=== PATIENT | male | born 1960 | race Caucasian/White ===

== ENCOUNTER 2018-05-21 14:09 | Inpatient (IN) ==
[2018-05-21] MEDS ORDERED: NORMAL SALINE 1,000 ML IV ONE (14:53)
[2018-05-21] MEDS ORDERED: ONDANSETRON HCL/PF 2 MG/ML VIAL IV ONE (14:53)
[2018-05-21] MEDS ORDERED: ACETAMINOPHEN 325 MG TABLET PO ONE ×2 (14:53→16:37)
--- NOTE | 2018-05-21 15:05 | ERNOTE ---
Medical Problem HPI - Narrative Date of Service: 05/21/18 - General Chief Complaint: Nausea/Vomiting Time Seen by Provider: 05/21/18 14:36 Source: patient Exam Limitations: no limitations - Immun/Allergies/Home Medications Immunizations: IMMUNIZATION HX Immunizations Up to Date No History of Influenza Vaccine No Hx Pneumococcal Vaccination No Allergies/Adverse Reactions: Allergies No Known Allergies Allergy (Unverified 05/21/18 14:18) Home Medications: HOME MEDICATIONS Acyclovir [Zovirax] 400 mg PO BID 05/21/18 [Last Taken Unknown] Sulfamethoxazole/Trimethoprim [Bactrim 400-80 mg Tablet] 1 ea PO DAILY 05/21/18 [Last Taken Unknown] Vitamin C 05/21/18 [Last Taken Unknown] - History of Present History Narrative: This patient is a 57-year-old male who is here stating that, "I am sick." He reports that he has had no energy. He has developed vomiting and diarrhea. He is on chemotherapy for mantle cell lymphoma. He had his last round 8 days ago. He has been tired afterwards but started feeling sick yesterday. He said that he developed diarrhea over the weekend and has had 3 or 4 episodes a day. He started vomiting yesterday and has thrown up twice today. He denies blood in the vomit or diarrhea. He has been able to keep down water and applesauce. He denies abdominal pain. He had a fever of 101.3 at home. He did not take anything for it. Review of Systems - Review of Systems Constitutional: Present: fever, malaise, weight loss, decreased activity level EYE: Absent: blurred vision, double vision ENT: Absent: ear pain, nose congestion, nasal drainage, sore throat Respiratory: Present: shortness of breath - He says that he feels short of breath when he is sick.. Absent: cough Cardiology: Absent: chest pain, palpitations, syncope, edema Gastrointestinal/Abdominal: Present: nausea, vomiting, diarrhea, eating less, drinking less. Absent: constipation, abdominal pain Genitourinary: Absent: frequency, pain, dysuria, hematuria Musculoskeletal: Absent: back pain, neck pain Skin: Absent: rash Neurological: Absent: anxiety, depressed, headache, dizziness/light-headedness Endocrine: Absent: unexplained weight gain, unexplained weight loss Hematologic/Lymphatic: Present: other - No active bleeding. Psych: Absent: anxiety, depressed Medical History (Last Reviewed 05/21/18 @ 15:03 by Renan Ann MD) History of chemotherapy Mantle cell lymphoma Surgical History: Surgical History (Last Reviewed 05/21/18 @ 15:03 by Renan Ann MD) Hx of tonsillectomy Social History: Preferred Language Burundian Do you have any protestant or No cultural preference? Smoking Status Former smoker Alcohol Use sober Drug Use none No Social History Section defined Physical Exam - Physical Exam General Appearance: Present: wd/wn, alert, other - He appears to not feel well. Head Exam: Present: normal inspection, no evidence of injury Eye Exam: Normal inspection: bilateral Ears, Nose, Throat: Present: normal ENT inspection, normal pharynx. Absent: abnormal TM (R), abnormal TM (L), pharyngeal erythema, tonsillar exudate Neck: Present: normal inspection, nontender. Absent: lymphadenopathy (R), lymphadenopathy (L) Respiratory: Present: no respiratory distress, normal breath sounds, lungs clear Cardiovascular/Chest: Present: no murmur, tachycardia. Absent: regular rate, rhythm Gastrointestinal/Abdominal: Present: normal bowel sounds, nontender, nondistended, soft, no organomegaly. Absent: guarding, rebound Back Exam: Present: normal inspection, normal range of motion, no CVA tenderness Extremity Exam: Present: normal inspection, non-tender, normal range of motion, no edema Neurological Exam: Present: alert, oriented, normal mood/affect, no motor/sensory deficits Skin Exam: Present: normal color, warm/dry Progress - Date and Time Seen: Date and Time: 05/21/18 16:54 I spoke with the horse groomer electronic device monitor for Dr. Rohit Edwards at the [facility] ([phone]). He suggested that he be continued on cefepime and cultured. He indicated that the patient could be admitted locally. I spoke with Dr. Mercado. He accepted the patient for admission. - Results and Orders Patient's Lab Results:: I have reviewed the patient's lab results. Results and Orders: Laboratory Tests 05/21/18 05/21/18 05/21/18 14:59 14:59 15:05 WBC 0.2 L RBC 3.13 L Hgb 10.1 L Hct 29.6 L MCV 94.6 MCH 32.3 H MCHC 34.1 RDW 17.2 H Plt Count 82 L MPV 11.7 H Immature Gran % (Auto) 5.00 H Immature Gran # (Auto) 0.01 Neutrophils % 30.0 L Neutrophils % (Manual) 20 L Lymphocytes % 15.0 L Lymphocytes % (Manual) 52 H Monocytes % 50.0 H Monocytes % (Manual) 20 H Eosinophils % 0.0 Basophils % 0.0 Nucleated RBC % 0.0 Immature Granulocytes 4 H Neutrophils # 0.1 L Neutrophils # (Manual) 0.0 L Lymphocytes # 0.03 L Lymphocytes # (Manual) 0.0 L Monocytes # 0.1 Monocytes # (Manual) 0.0 Eosinophils # 0.0 Absolute Basophils 0.0 Atypic/Reactive Lymphs 4 H Platelet Estimate Decreased L Macrocytosis 1+ Tear Drop Cells Trace Ovalocytes Trace Sodium Plasma Sodium Potassium Chloride Carbon Dioxide Anion Gap BUN Creatinine Est GFR (Non-Af Amer) Random Glucose Lactic Acid, Venous Calcium Calcium Adj for Albumin Total Bilirubin AST ALT Alkaline Phosphatase C-Reactive Prot, Quant Total Protein Albumin Influenza Type A Ag Negative Influenza Type B Ag Negative Group A Strep Rapid Negative 05/21/18 05/21/18 15:05 15:05 WBC RBC Hgb Hct MCV MCH MCHC RDW Plt Count MPV Immature Gran % (Auto) Immature Gran # (Auto) Neutrophils % Neutrophils % (Manual) Lymphocytes % Lymphocytes % (Manual) Monocytes % Monocytes % (Manual) Eosinophils % Basophils % Nucleated RBC % Immature Granulocytes Neutrophils # Neutrophils # (Manual) Lymphocytes # Lymphocytes # (Manual) Monocytes # Monocytes # (Manual) Eosinophils # Absolute Basophils Atypic/Reactive Lymphs Platelet Estimate Macrocytosis Tear Drop Cells Ovalocytes Sodium 127 L Plasma Sodium 128 L Potassium 3.3 L Chloride 93 L Carbon Dioxide 22.7 L Anion Gap 14.6 H BUN 17 Creatinine 1.12 Est GFR (Non-Af Amer) 71 Random Glucose 145 H Lactic Acid, Venous 1.9 Calcium 8.2 Calcium Adj for Albumin 8.6 Total Bilirubin 0.6 AST 14 ALT 43 Alkaline Phosphatase 95 C-Reactive Prot, Quant 7.0 H Total Protein 6.5 Albumin 3.1 L Influenza Type A Ag Influenza Type B Ag Group A Strep Rapid Laboratory Tests 05/21/18 16:13 Urine Color [place] Urine Appearance Slightly cloudy Urine pH 6.0 Ur Specific [place] >=1.030 Urine Protein 100 H Urine Glucose (UA) Negative Urine Ketones Negative Urine Blood Negative Urine Nitrate Negative Urine Bilirubin Negative Prot Sulfosalicylic Acd Negative Urine Urobilinogen Normal Ur Leukocyte Esterase Negative Urine RBC None seen Urine WBC None seen Ur Epithelial Cells 5-10 H Urine Bacteria 1+ H Fine Granular Casts 0-5 H Urine Mucus Trace Urine Culture Comments No culture indicated - Vital Signs Patient's Vital Signs:: I have reviewed the patient's vital signs. Vital Signs: Vital Signs 05/21/18 14:18 Temperature 38.5 C H Pulse Rate 115 H Respiratory Rate 18 Blood Pressure 111/77 O2 Sat by Pulse Oximetry 98 - Progress/Reassessment Chief Complaint: Nausea/Vomiting Departure Clinical Impression: Neutropenic fever, Mantle cell lymphoma - Departure Disposition: Still a patient Condition: Fair
[2018-05-21 15:17] LABS: Hematocrit 29.6 % (42.0-52.0); Hemoglobin 10.1 gm/dL (13.5-18.0); Mean Cell Volume 94.6 fl (78-100); Mean Corpuscular Hemoglobin 32.3 pg (27-31); Mean Corpuscular Hgb Conc 34.1 g/dl (32-36); Mean Platelet Volume 11.7 fl (8-11.3); Neutrophil # 0.1 K/mm3 (1.3-6.0); Platelet Count 82 K/mm3 (150-450); Red Blood Count 3.13 M/mm3 (4.7-6.0); Red Cell Distribution Width 17.2 % (11.5-14.0); White Blood Count 0.2 K/mm3 (4.0-10.5)
[2018-05-21] MEDS ORDERED: CEFEPIME HCL 1 GM/100 ML BAG IV ONE (15:31)
[2018-05-21 15:36] LABS: Albumin * 3.1 gm/dl (3.4-5.0); Anion Gap 14.6 mmol/L (6.8-13.8); BUN/Creatinine Ratio 15.2 (9.0-21.6); Bilirubin, Total 0.6 mg/dL (0.0-1.1); Ca. Corrected For Albumin 8.6 mg/dL (8.4-10.2); Calcium * 8.2 mg/dL (7.9-10.9); Carbon Dioxide 22.7 mmol/L (24-32.6); Potassium 3.3 mmol/L (3.4-4.6); Total Protein 6.5 gm/dL (6.2-8.2)
[2018-05-21 15:43] LABS: Atypical (Reactive) Lymph 4 % (0-2); Immature Granulocyte 4 (0-1); Lymphocyte 52 % (20-51); Monocyte 20 % (0-9); Neutrophil 20 % (42-75); Total Cells Counted 25
[2018-05-21 15:44] LABS: Platelet Estimate Decreased (NORMAL)
[2018-05-21 15:45] LABS: Macrocytosis 1+; Ovalocytes Trace; Tear Drop Cells Trace
[2018-05-21] MEDS ORDERED: CEFEPIME HCL 2 GM in NORMAL SALINE 100 ML IV ONE (16:00)
[2018-05-21] MEDS ORDERED: CEFEPIME HCL 2 GM in DEXTROSE 5 % IN WATER 100 ML IV ONE ×2 (16:00)
[2018-05-21 16:18] LABS: Urine Bilirubin Negative (NEGATIVE); Urine Blood Negative /ul (NEGATIVE); Urine Ketone Negative (NEGATIVE); Urine Nitrite Negative (NEGATIVE); Urine Protein 100 mg/dL (NEGATIVE); Urine Specific Gravity >=1.030 SP.GR. (1.005-1.030); Urine Urobilinogen Normal (NORMAL)
[2018-05-21 16:27] LABS: Urine Appearance Slightly Cloudy (CLEAR); Urine Bacteria 1+; Urine Color Amber; Urine Fine Granular Cast 0-5 /LPF; Urine Mucus TRACE; Urine RBC None Seen /hpf (0-5); Urine WBC None Seen /hpf (0-5)
--- NOTE | 2018-05-21 18:17 | HP ---
Chief Complaint - Chief Complaint Date of Service: 05/21/18 Time of Service: 17:54 Chief Complaint: fever/weakness History of Present Illness: ashleigh Velez, is a 57-year-old white male, with previous medical history of Mantle cell lymphoma, who was admitted on 05/21/2018 for weakness and fever. The patient was diagnosed with mantle cell lymphoma about 5-6 months ago and was started on chemotherapy. This is his fifth cycle of chemotherapy and he just finished this 8 days ago. He never had any complications with prior CTX. He says that he takes R- CHOP. 2-3 days prior to admission the patient started getting more weaker than usual. Yesterday the patient started having fever, nausea vomiting and diarrhea. He denied any hematemesis or hematochezia or melena. He denied any coughing, burning sensation on urination, any painful so res or blisters. He does admit to his sinuses being blocked all the time and has always a runny nose with clear discharge. He is on prophylactic antibiotic consisting of Bactrim and acyclovir. His weakness got more worst than and he went to our emergency room where he was found to have a fever of 38.5 and a white blood cell count of 0.2, nuetrophils 30 %, immature granulocyte 5 %. His Na is 127 and his K 3.3. His CXR showed no acute cardiopulmonary findings and his urunalysis did not show UTI. The ED docotr called [facility] and they recommended starting IV cefepime and do cultures. The patient was admitted for further evaluation and treatment. 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 Smoking Status Never smoker Have you smoked in the past 12 No months Alcohol Use sober Drug Use none No Social History Section defined Review Of Systems (GEN) - Review of Systems Generalized/Overall Review: Present: Weakness, Fever EENTM: Present: Nose Congestion. Absent: Blurred Vision, Ear Discharge, Throat Swelling Respiratory: Absent: Cough, Shortness of Breath Cardiac: Absent: Chest Pain, Edema, Palpitations Abdominal: Present: Nausea, Vomiting, Diarrhea. Absent: Hematemesis, Melena Genitourinary: Absent: Urgency, Frequency Musculoskeletal: Absent: Joint Pain, Back Pain Neurological: Absent: Headache Skin: Absent: Lesions, Rash Endocrine: Absent: [place]ushing Immunizations: IMMUNIZATION HX Immunizations Up to Date No History of Influenza Vaccine No Hx Pneumococcal Vaccination No Allergies/Adverse Reactions: Allergies Allergy/AdvReac Type Severity Reaction Status Date / Time No Known Allergies Allergy Verified 05/21/18 17:39 Home Medications: HOME MEDICATIONS Acyclovir [Zovirax] 400 mg PO BID 05/21/18 [Last Taken Unknown] Sulfamethoxazole/Trimethoprim [Bactrim 400-80 mg Tablet] 1 ea PO DAILY 05/21/18 [Last Taken Unknown] Vitamin C 05/21/18 [Last Taken Unknown] Exam - Exam Vital Signs: Vital Signs - Last Taken Temp 37.4 C 05/21/18 17:29 Pulse 95 05/21/18 17:29 Resp 18 05/21/18 17:29 BP 138/75 05/21/18 17:29 Pulse Ox 100 05/21/18 17:29 Constitutional: Present: Alert, Oriented x3, Cooperative, Obese ENT Exam: Present: hearing grossly normal, nasal congestion Eye Exam: bilateral eye: normal inspection, PERRL, EOMI Neck: Present: supple Respiratory: Present: decreased breath sounds, No rales, No wheezing Cardiovascular/Chest: Present: regular rate, rhythm, no JVD, no murmur Abdomen: Present: Normal bowel sounds, soft, nontender, nondistended Extremity: Present: no pedal edema, no calf tenderness Neurologic: Present: retort or condenser press operator II-XII nml as tested, no motor/sensory deficits - grossly, oriented x 3 Diagnostic Studies: Abnormal Lab Results 05/21/18 05/21/18 05/21/18 Range/Units 15:05 15:05 15:05 WBC 0.2 L (4.0-10.5) K/mm3 RBC 3.13 L (4.7-6.0) M/mm3 Hgb 10.1 L (13.5-18.0) gm/dL Hct 29.6 L (42.0-52.0) % MCH 32.3 H (27-31) pg RDW 17.2 H (11.5-14.0) % Plt Count 82 L (150-450) K/mm3 MPV 11.7 H (8-11.3) fl Immature Gran % (Auto) 5.00 H (0.001-0.429) % Neutrophils % 30.0 L (42-75.0) % Neutrophils % (Manual) 20 L (42-75) % Lymphocytes % 15.0 L (20-51) % Lymphocytes % (Manual) 52 H (20-51) % Monocytes % 50.0 H (0.0-9) % Monocytes % (Manual) 20 H (0-9) % Immature Granulocytes 4 H (0-1) Neutrophils # 0.1 L (1.3-6.0) K/mm3 Neutrophils # (Manual) 0.0 L (1.3-6.0) K/mm3 Lymphocytes # 0.03 L (1.5-3.5) k/mm3 Lymphocytes # (Manual) 0.0 L (1.5-3.5) k/mm3 Atypic/Reactive Lymphs 4 H (0-2) % Platelet Estimate Decreased L (NORMAL) Sodium 127 L (132-142) mmol/L Plasma Sodium 128 L (130-142) mmol/L Potassium 3.3 L (3.4-4.6) mmol/L Chloride 93 L (97-106) mmol/L Carbon Dioxide 22.7 L (24-32.6) mmol/L Anion Gap 14.6 H (6.8-13.8) mmol/L Random Glucose 145 H (70-110) mg/dL C-Reactive Prot, Quant 7.0 H (0.0-0.9) mg/dL Albumin 3.1 L (3.4-5.0) gm/dl Procalcitonin 0.89 H (0.05-0.50) ng/mL Urine Protein (NEGATIVE) mg/dL Ur Epithelial Cells (0-5) /hpf Urine Bacteria (NONE) Fine Granular Casts (NONE) /LPF 05/21/18 Range/Units 16:13 WBC (4.0-10.5) K/mm3 RBC (4.7-6.0) M/mm3 Hgb (13.5-18.0) gm/dL Hct (42.0-52.0) % MCH (27-31) pg RDW (11.5-14.0) % Plt Count (150-450) K/mm3 MPV (8-11.3) fl Immature Gran % (Auto) (0.001-0.429) % Neutrophils % (42-75.0) % Neutrophils % (Manual) (42-75) % Lymphocytes % (20-51) % Lymphocytes % (Manual) (20-51) % Monocytes % (0.0-9) % Monocytes % (Manual) (0-9) % Immature Granulocytes (0-1) Neutrophils # (1.3-6.0) K/mm3 Neutrophils # (Manual) (1.3-6.0) K/mm3 Lymphocytes # (1.5-3.5) k/mm3 Lymphocytes # (Manual) (1.5-3.5) k/mm3 Atypic/Reactive Lymphs (0-2) % Platelet Estimate (NORMAL) Sodium (132-142) mmol/L Plasma Sodium (130-142) mmol/L Potassium (3.4-4.6) mmol/L Chloride (97-106) mmol/L Carbon Dioxide (24-32.6) mmol/L Anion Gap (6.8-13.8) mmol/L Random Glucose (70-110) mg/dL C-Reactive Prot, Quant (0.0-0.9) mg/dL Albumin (3.4-5.0) gm/dl Procalcitonin (0.05-0.50) ng/mL Urine Protein 100 H (NEGATIVE) mg/dL Ur Epithelial Cells 5-10 H (0-5) /hpf Urine Bacteria 1+ H (NONE) Fine Granular Casts 0-5 H (NONE) /LPF Laboratory Results WBC 0.2 K/mm3 (4.0-10.5) L 05/21/18 15:05 RBC 3.13 M/mm3 (4.7-6.0) L 05/21/18 15:05 Hgb 10.1 gm/dL (13.5-18.0) L 05/21/18 15:05 Hct 29.6 % (42.0-52.0) L 05/21/18 15:05 MCV 94.6 fl (78-100) 05/21/18 15:05 MCH 32.3 pg (27-31) H 05/21/18 15:05 MCHC 34.1 g/dl (32-36) 05/21/18 15:05 RDW 17.2 % (11.5-14.0) H 05/21/18 15:05 Plt Count 82 K/mm3 (150-450) L 05/21/18 15:05 MPV 11.7 fl (8-11.3) H 05/21/18 15:05 Immature Gran % (Auto) 5.00 % (0.001-0.429) H 05/21/18 15:05 Immature Gran # (Auto) 0.01 K/mm3 (0.000-0.0310) 05/21/18 15:05 Neutrophils % 30.0 % (42-75.0) L 05/21/18 15:05 Neutrophils % (Manual) 20 % (42-75) L 05/21/18 15:05 Lymphocytes % 15.0 % (20-51) L 05/21/18 15:05 Lymphocytes % (Manual) 52 % (20-51) H 05/21/18 15:05 Monocytes % 50.0 % (0.0-9) H 05/21/18 15:05 Monocytes % (Manual) 20 % (0-9) H 05/21/18 15:05 Eosinophils % 0.0 % (0.0-3.0) 05/21/18 15:05 Basophils % 0.0 % (0.0-1.0) 05/21/18 15:05 Nucleated RBC % 0.0 k/mm3 (0-1) 05/21/18 15:05 Immature Granulocytes 4 (0-1) H 05/21/18 15:05 Neutrophils # 0.1 K/mm3 (1.3-6.0) L 05/21/18 15:05 Neutrophils # (Manual) 0.0 K/mm3 (1.3-6.0) L 05/21/18 15:05 Lymphocytes # 0.03 k/mm3 (1.5-3.5) L 05/21/18 15:05 Lymphocytes # (Manual) 0.0 k/mm3 (1.5-3.5) L 05/21/18 15:05 Monocytes # 0.1 k/mm3 (0.0-1.0) 05/21/18 15:05 Monocytes # (Manual) 0.0 k/mm3 (0.0-1.0) 05/21/18 15:05 Eosinophils # 0.0 k/mm3 (0.0-0.7) 05/21/18 15:05 Absolute Basophils 0.0 k/mm3 (0.0-0.1) 05/21/18 15:05 Atypic/Reactive Lymphs 4 % (0-2) H 05/21/18 15:05 Platelet Estimate Decreased (NORMAL) L 05/21/18 15:05 Macrocytosis 1+ 05/21/18 15:05 Tear Drop Cells Trace 05/21/18 15:05 Ovalocytes Trace 05/21/18 15:05 Sodium 127 mmol/L (132-142) L 05/21/18 15:05 Plasma Sodium 128 mmol/L (130-142) L 05/21/18 15:05 Potassium 3.3 mmol/L (3.4-4.6) L 05/21/18 15:05 Chloride 93 mmol/L (97-106) L 05/21/18 15:05 Carbon Dioxide 22.7 mmol/L (24-32.6) L 05/21/18 15:05 Anion Gap 14.6 mmol/L (6.8-13.8) H 05/21/18 15:05 BUN 17 mg/dL (6-23) 05/21/18 15:05 Creatinine 1.12 mg/dL (0.4-1.4) 05/21/18 15:05 Est GFR (Non-Af Amer) 71 mL/min (60-130) 05/21/18 15:05 BUN/Creatinine Ratio 15.2 (9.0-21.6) 05/21/18 15:05 Random Glucose 145 mg/dL (70-110) H 05/21/18 15:05 Lactic Acid, Venous 1.9 mmol/L (0.4-2.0) 05/21/18 15:05 Calcium 8.2 mg/dL (7.9-10.9) 05/21/18 15:05 Calcium Adj for Albumin 8.6 mg/dL (8.4-10.2) 05/21/18 15:05 Total Bilirubin 0.6 mg/dL (0.0-1.1) 05/21/18 15:05 AST 14 U/L (0-48) 05/21/18 15:05 ALT 43 U/L (19-67) 05/21/18 15:05 Alkaline Phosphatase 95 U/L (50-170) 05/21/18 15:05 C-Reactive Prot, Quant 7.0 mg/dL (0.0-0.9) H 05/21/18 15:05 Total Protein 6.5 gm/dL (6.2-8.2) 05/21/18 15:05 Albumin 3.1 gm/dl (3.4-5.0) L 05/21/18 15:05 Procalcitonin 0.89 ng/mL (0.05-0.50) H 05/21/18 15:05 Urine Color [place] 05/21/18 16:13 Urine Appearance Slightly cloudy (CLEAR) 05/21/18 16:13 Urine pH 6.0 pH (5.0-7.0) 05/21/18 16:13 Ur Specific [place] >=1.030 SP.GR. (1.005-1.030) 05/21/18 16:13 Urine Protein 100 mg/dL (NEGATIVE) H 05/21/18 16:13 Urine Glucose (UA) Negative mg/dL (NEGATIVE) 05/21/18 16:13 Urine Ketones Negative mg/dL (NEGATIVE) 05/21/18 16:13 Urine Blood Negative /ul (NEGATIVE) 05/21/18 16:13 Urine Nitrate Negative (NEGATIVE) 05/21/18 16:13 Urine Bilirubin Negative mg/dl (NEGATIVE) 05/21/18 16:13 Prot Sulfosalicylic Acd Negative mg/dL (0) 05/21/18 16:13 Urine Urobilinogen Normal EU/dl (NORMAL) 05/21/18 16:13 Ur Leukocyte Esterase Negative /ul (NEGATIVE) 05/21/18 16:13 Urine RBC None seen /hpf (0-5) 05/21/18 16:13 Urine WBC None seen /hpf (0-5) 05/21/18 16:13 Ur Epithelial Cells 5-10 /hpf (0-5) H 05/21/18 16:13 Urine Bacteria 1+ (NONE) H 05/21/18 16:13 Fine Granular Casts 0-5 /LPF (NONE) H 05/21/18 16:13 Urine Mucus Trace (NONE) 05/21/18 16:13 Urine Culture Comments No culture indicated 05/21/18 16:13 Influenza Type A Ag Negative (NEGATIVE) 05/21/18 14:59 Influenza Type B Ag Negative (NEGATIVE) 05/21/18 14:59 Group A Strep Rapid Negative (NEGATIVE) 05/21/18 14:59 Assessment/Plan - Assessment/Plan (1) Neutropenic fever Assessment: We will continue with IV cefepime. We will do blood cultures, urine cultures, stool cultures as well as stool for C. difficile. We will monitor her his white blood cell count and his absolute neutrophil count. Problem: Acute (2) Mantle cell lymphoma Problem: Chronic (3) Electrolyte imbalance Assessment: Hyponatremia, asymptomatic with mild hypokalemia due to vomiting and diarrhea. We will start him on 0.9 NSS with potassium chloride. Problem: Acute (4) Hyponatremia Assessment: due to N/V/D Problem: Acute (5) Hypokalemia Assessment: due to N/V/D Problem: Acute
[2018-05-21] MEDS ORDERED: ACETAMINOPHEN 325 MG TABLET PO PRN (18:18)
[2018-05-21] MEDS ORDERED: ONDANSETRON HCL/PF 2 MG/ML VIAL IV PRN (18:18)
[2018-05-21] MEDS: POTASSIUM CHLORIDE 10 MEQ in NORMAL SALINE 1,000 ML IV SCH (18:36)
[2018-05-21] MEDS: ACYCLOVIR 200 MG CAPSULE PO SCH (21:13)
[2018-05-21] MEDS: ENOXAPARIN SODIUM 40 MG/0.4 ML SYRG SC SCH (21:15)
[2018-05-22] MEDS: POTASSIUM CHLORIDE 10 MEQ in NORMAL SALINE 1,000 ML IV SCH ×2 (03:28→15:20)
[2018-05-22] MEDS: CEFEPIME HCL 1 GM in DEXTROSE 5 % IN WATER 100 ML IV SCH ×4 (03:31→15:17)
[2018-05-22] MEDS: ACYCLOVIR 200 MG CAPSULE PO SCH ×2 (08:28→20:10)
--- NOTE | 2018-05-22 09:29 | PN ---
Subjective - Date and Time Seen Date: 05/22/18 Time: 09:18 Subjective Narrative: He says he feels a little bit better. Afebrile since 2330 last night. No more N/V but still with diarrhea. Ate a little bit this time. Objective - Review of Systems Generalized/Overall Review: Reports: Weakness, Fever. Denies: Chills EENTM: Denies: Blurred Vision Respiratory: Denies: Cough, Shortness of Breath, Orthopnea Cardiac: Denies: Chest Pain, Edema, Palpitations Abdominal: Reports: Diarrhea. Denies: Nausea, Vomiting Genitourinary Symptoms: Denies: Urgency, Frequency Musculoskeletal Complaints: Denies: Joint Pain, Back Pain Neurological: Denies: Headache, Depressed Skin: Denies: Lesions Endocrine: Denies: Intolerance to Cold, Intolerance to Heat - Vitals Vitals: Last Vital Signs Temp 36.6 C 05/22/18 07:07 Pulse 85 05/22/18 07:07 Resp 20 05/22/18 07:07 BP 118/60 05/22/18 07:07 Pulse Ox 99 05/22/18 07:07 - Abnormal Lab Findings Abnormal Lab Findings: Abnormal Lab Results 05/21/18 05/21/18 05/21/18 Range/Units 15:05 15:05 15:05 WBC 0.2 L (4.0-10.5) K/mm3 RBC 3.13 L (4.7-6.0) M/mm3 Hgb 10.1 L (13.5-18.0) gm/dL Hct 29.6 L (42.0-52.0) % MCH 32.3 H (27-31) pg RDW 17.2 H (11.5-14.0) % Plt Count 82 L (150-450) K/mm3 MPV 11.7 H (8-11.3) fl Immature Gran % (Auto) 5.00 H (0.001-0.429) % Neutrophils % 30.0 L (42-75.0) % Neutrophils % (Manual) 20 L (42-75) % Lymphocytes % 15.0 L (20-51) % Lymphocytes % (Manual) 52 H (20-51) % Monocytes % 50.0 H (0.0-9) % Monocytes % (Manual) 20 H (0-9) % Immature Granulocytes 4 H (0-1) Neutrophils # 0.1 L (1.3-6.0) K/mm3 Neutrophils # (Manual) 0.0 L (1.3-6.0) K/mm3 Lymphocytes # 0.03 L (1.5-3.5) k/mm3 Lymphocytes # (Manual) 0.0 L (1.5-3.5) k/mm3 Atypic/Reactive Lymphs 4 H (0-2) % Platelet Estimate Decreased L (NORMAL) Sodium 127 L (132-142) mmol/L Plasma Sodium 128 L (130-142) mmol/L Potassium 3.3 L (3.4-4.6) mmol/L Chloride 93 L (97-106) mmol/L Carbon Dioxide 22.7 L (24-32.6) mmol/L Anion Gap 14.6 H (6.8-13.8) mmol/L Random Glucose 145 H (70-110) mg/dL C-Reactive Prot, Quant 7.0 H (0.0-0.9) mg/dL Albumin 3.1 L (3.4-5.0) gm/dl Procalcitonin 0.89 H (0.05-0.50) ng/mL Urine Protein (NEGATIVE) mg/dL Ur Epithelial Cells (0-5) /hpf Urine Bacteria (NONE) Fine Granular Casts (NONE) /LPF 05/21/18 Range/Units 16:13 WBC (4.0-10.5) K/mm3 RBC (4.7-6.0) M/mm3 Hgb (13.5-18.0) gm/dL Hct (42.0-52.0) % MCH (27-31) pg RDW (11.5-14.0) % Plt Count (150-450) K/mm3 MPV (8-11.3) fl Immature Gran % (Auto) (0.001-0.429) % Neutrophils % (42-75.0) % Neutrophils % (Manual) (42-75) % Lymphocytes % (20-51) % Lymphocytes % (Manual) (20-51) % Monocytes % (0.0-9) % Monocytes % (Manual) (0-9) % Immature Granulocytes (0-1) Neutrophils # (1.3-6.0) K/mm3 Neutrophils # (Manual) (1.3-6.0) K/mm3 Lymphocytes # (1.5-3.5) k/mm3 Lymphocytes # (Manual) (1.5-3.5) k/mm3 Atypic/Reactive Lymphs (0-2) % Platelet Estimate (NORMAL) Sodium (132-142) mmol/L Plasma Sodium (130-142) mmol/L Potassium (3.4-4.6) mmol/L Chloride (97-106) mmol/L Carbon Dioxide (24-32.6) mmol/L Anion Gap (6.8-13.8) mmol/L Random Glucose (70-110) mg/dL C-Reactive Prot, Quant (0.0-0.9) mg/dL Albumin (3.4-5.0) gm/dl Procalcitonin (0.05-0.50) ng/mL Urine Protein 100 H (NEGATIVE) mg/dL Ur Epithelial Cells 5-10 H (0-5) /hpf Urine Bacteria 1+ H (NONE) Fine Granular Casts 0-5 H (NONE) /LPF - Exam Constitutional: Present: Alert, Oriented x3, Cooperative ENT Exam: Present: hearing grossly normal Neck: Present: supple Respiratory: Present: decreased breath sounds, No rales, No wheezing Cardiovascular/Chest: Present: regular rate, rhythm, no JVD, no murmur Abdomen: Present: Normal bowel sounds, soft, nontender, nondistended Extremity: Present: no calf tenderness, pedal edema Neurologic: 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 Clinically feels better. he wants to go home. will monitor ANC and fever before starting oral antibiotics and planning for discharge. C. diff was negative. will order CBC and BMP tomorrow. (2) Mantle cell lymphoma Problem: Chronic Qualifiers: Lymphoma site: unspecified region Qualified Code(s): C83.10 - Mantle cell lymphoma, unspecified site (3) Electrolyte imbalance Problem: Acute Narrative: will check electrolyte in the morning. he has been poked several times today for an IV access. anesthesia consulted for IV line placement. (4) Hyponatremia Problem: Acute (5) Hypokalemia Problem: Acute
[2018-05-22] MEDS: ENOXAPARIN SODIUM 40 MG/0.4 ML SYRG SC SCH (20:10)
[2018-05-23] MEDS: POTASSIUM CHLORIDE 10 MEQ in NORMAL SALINE 1,000 ML IV SCH ×3 (01:27→16:10)
[2018-05-23] MEDS: CEFEPIME HCL 1 GM in DEXTROSE 5 % IN WATER 100 ML IV SCH ×4 (03:52→16:07)
[2018-05-23 06:06] LABS: Anion Gap 9.3 mmol/L (6.8-13.8); BUN/Creatinine Ratio 13.6 (9.0-21.6); Calcium * 8.1 mg/dL (7.9-10.9); Carbon Dioxide 25.9 mmol/L (24-32.6); Estimated Creat Clear 107.9; Mean Cell Volume 93.9 fl (78-100); Mean Corpuscular Hemoglobin 32.4 pg (27-31); Mean Corpuscular Hgb Conc 34.5 g/dl (32-36); Platelet Count 53 K/mm3 (150-450); Potassium 3.2 mmol/L (3.4-4.6); Red Blood Count 2.47 M/mm3 (4.7-6.0); Red Cell Distribution Width 16.6 % (11.5-14.0); White Blood Count 0.9 K/mm3 (4.0-10.5)
[2018-05-23 06:11] LABS: Hematocrit 24.2 % (42.0-52.0)
[2018-05-23 06:12] LABS: Total Cells Counted 100
[2018-05-23 06:37] LABS: Atypical (Reactive) Lymph 6 % (0-2); Band 12 % (0-2.0); Basophil 1 % (0-1); Lymphocyte 30 % (20-51); Monocyte 6 % (0-9); Neutrophil 45 % (42-75); Neutrophil # 0.4 K/mm3 (1.3-6.0); Platelet Estimate Normal (NORMAL)
[2018-05-23] MEDS: ACYCLOVIR 200 MG CAPSULE PO SCH ×2 (08:33→21:29)
[2018-05-23] MEDS ORDERED: POTASSIUM CHLORIDE 10 MEQ TABLET.SA PO ONE (09:24)
--- NOTE | 2018-05-23 09:48 | PN ---
Subjective - Date and Time Seen Date: 05/23/18 Time: 09:44 Subjective Narrative: Patient feels beter and wants to go home. He has been afebrile for the last 36 hours. ANC is up to 1000 but his platelet is down to 53 from 83. Hb is down to 8. no gross evidence of bleed. Objective - Review of Systems Generalized/Overall Review: Reports: Weakness. Denies: Chills, Fever EENTM: Denies: Blurred Vision Respiratory: Denies: Cough, Shortness of Breath Cardiac: Denies: Chest Pain, Edema, Palpitations Abdominal: Denies: Nausea, Vomiting, Abdominal Pain, Diarrhea Genitourinary Symptoms: Denies: Urgency, Frequency Musculoskeletal Complaints: Denies: Joint Pain, Back Pain Neurological: Denies: Headache Skin: Denies: Lesions, Rash - Vitals Vitals: Last Vital Signs Temp 36.8 C 05/23/18 06:50 Pulse 67 05/23/18 06:50 Resp 16 05/23/18 06:50 BP 113/55 05/23/18 06:50 Pulse Ox 99 05/23/18 06:50 - Abnormal Lab Findings Abnormal Lab Findings: Abnormal Lab Results 05/23/18 05/23/18 Range/Units 05:55 05:55 WBC 0.9 L D (4.0-10.5) K/mm3 RBC 2.47 L (4.7-6.0) M/mm3 Hgb 8.0 L (13.5-18.0) gm/dL Hct 24.2 L (42.0-52.0) % MCH 32.4 H (27-31) pg RDW 16.6 H (11.5-14.0) % Plt Count 53 L (150-450) K/mm3 MPV 12.0 H (8-11.3) fl Band Neuts % (Manual) 12 H (0-2.0) % Neutrophils # (Manual) 0.4 L (1.3-6.0) K/mm3 Lymphocytes # (Manual) 0.3 L (1.5-3.5) k/mm3 Atypic/Reactive Lymphs 6 H (0-2) % Potassium 3.2 L (3.4-4.6) mmol/L Assessment/Plan - Problems/Diagnosis (1) Pancytopenia Problem: Acute Narrative: Thrombocytopenia/Anemia- still could be due to CTX or his Lymphoma. no gross bleed. will do UA and stool for occult blood. will continue with Lovenox as his risk for clot is still higher than his risk for bleeding unless he shows microsopic hematuria or positive occult blood. . will monitor his platelets and Hb. I don't think it is HIT at this time. (2) Neutropenic fever Problem: Acute Narrative: patient is wanting to go home now. patient was told that we ususal;ly transition them to oral antibiotics after 48 hours of no fever or if their WBC goes down. In his case as he was neutropenic , recommendation is to transition them to oral antibiotics to oral antibitoics even longer afte fever has subside or at least his ANC is above 500 which it is now. would like to follow his platelet for now. (3) Mantle cell lymphoma Problem: Chronic Qualifiers: Lymphoma site: unspecified region Qualified Code(s): C83.10 - Mantle cell lymphoma, unspecified site (4) Electrolyte imbalance Problem: Acute Narrative: will give Siobhan Con. (5) Hyponatremia Problem: Acute (6) Hypokalemia Problem: Acute
[2018-05-23 16:21] LABS: Urine Bilirubin Negative (NEGATIVE); Urine Blood Negative /ul (NEGATIVE); Urine Ketone 5 mg/dL (NEGATIVE); Urine Nitrite Negative (NEGATIVE); Urine Protein Negative (NEGATIVE); Urine Specific Gravity 1.025 SP.GR. (1.005-1.030); Urine Urobilinogen Normal (NORMAL)
[2018-05-23 16:41] LABS: Urine Appearance Clear (CLEAR); Urine Bacteria TRACE; Urine Color Dark Yellow; Urine Mucus Few - 1+; Urine RBC None Seen /hpf (0-5); Urine WBC None Seen /hpf (0-5)
[2018-05-23] MEDS: ENOXAPARIN SODIUM 40 MG/0.4 ML SYRG SC SCH (21:31)
[2018-05-24] MEDS: POTASSIUM CHLORIDE 10 MEQ in NORMAL SALINE 1,000 ML IV SCH (03:22)
[2018-05-24] MEDS: CEFEPIME HCL 1 GM in DEXTROSE 5 % IN WATER 100 ML IV SCH ×2 (03:23)
[2018-05-24 05:39] LABS: Mean Cell Volume 95.5 fl (78-100); Mean Corpuscular Hemoglobin 32.5 pg (27-31); Mean Corpuscular Hgb Conc 34.1 g/dl (32-36); Mean Platelet Volume 12.3 fl (8-11.3); Platelet Count 55 K/mm3 (150-450); Red Blood Count 2.43 M/mm3 (4.7-6.0); Red Cell Distribution Width 17.1 % (11.5-14.0); White Blood Count 1.7 K/mm3 (4.0-10.5)
[2018-05-24 05:40] LABS: BUN/Creatinine Ratio 12.8 (9.0-21.6)
[2018-05-24 05:41] LABS: Anion Gap 10.9 mmol/L (6.8-13.8); Calcium * 8.2 mg/dL (7.9-10.9); Carbon Dioxide 26.5 mmol/L (24-32.6); Estimated Creat Clear 112.1; Potassium 3.4 mmol/L (3.4-4.6)
[2018-05-24 05:44] LABS: Hematocrit 24.2 % (42.0-52.0)
[2018-05-24 05:45] LABS: Total Cells Counted 100
[2018-05-24 06:09] LABS: Band 5 % (0-2.0); Eosinophil 1 % (0-3); Immature Granulocyte 10 (0-1); Lymphocyte 28 % (20-51); Monocyte 1 % (0-9); Neutrophil 55 % (42-75); Neutrophil # 0.9 K/mm3 (1.3-6.0); Platelet Estimate Decreased (NORMAL)
[2018-05-24 06:10] LABS: Hypochromia 1+; Macrocytosis 1+
[2018-05-24] MEDS: ACYCLOVIR 200 MG CAPSULE PO SCH (08:16)
--- NOTE | 2018-05-24 10:31 | DS ---
(1) Neutropenic fever Problem: Resolved (2) Electrolyte imbalance Problem: Resolved (3) Pancytopenia Problem: Acute (4) Mantle cell lymphoma Problem: Chronic Qualifiers: Lymphoma site: unspecified region Qualified Code(s): C83.10 - Mantle cell lymphoma, unspecified site (5) Hyponatremia Problem: Resolved (6) Hypokalemia Problem: Resolved Description of Stay: Laura Velez, is a 57-year-old white male, with previous medical history of Mantle cell lymphoma, who was admitted on 05/21/2018 for weakness and fever. The patient was diagnosed with mantle cell lymphoma about 5-6 months ago and was started on chemotherapy. This was his fifth cycle of chemotherapy and he just finished this 8 days [employer]. He never had any complications with prior his CTX. He said that he takes R- CHOP. 2-3 days prior to admission the patient started getting more weaker than usual. Yesterday the patient started having fever, nausea vomiting and diarrhea. He denied any hematemesis or hematochezia or melena. He denied any coughing, burning sensation on urination, any painful sores or blisters. He does admit to his sinuses being blocked all the time and has always a runny nose with clear discharge. He is on prophylactic antibiotic consisting of Bactrim and acyclovir. His weakness got more worst than and he went to our emergency room where he was found to have a fever of 38.5 and a white blood cell count of 0.2, nuetrophils 30 %, immature granulocyte 5 %. His Na was 127 and his K 3.3. His CXR showed no acute cardiopulmonary findings and his urinalysis did not show UTI. The ED doctor called [facility] and they recommended starting IV cefepime and do cultures. The patient was admitted for further evaluation and treatment. He was continued on IVF, IV Cefepime 3 days. His cultures came back NG, his CDIFF was negative. He improved clinically and his WBC count now is 1.7 with ANC of 1000. he has been afebrile for the last 60 hours. He is no longer having any N/V/D. His platelet went down but is trending back up again. His Hb has remained stable at 8. He is stable to be discharged today and follow up with his PCP on Sunday with a CBC. Although this could have been a Viral gastroenteritis we will cover him antibiotics due to his immuniosupression. He will continue with Acyclovir and resume his Bactrim in 4 days when he finishes his Omnicef. Procedures Performed: none Results and Findings: Pending Mircobiology Results 05/21/18 15:23 Blood Blood Culture - Preliminary NO GROWTH AFTER 48 HOURS 05/21/18 15:05 Blood Blood Culture - Preliminary NO GROWTH AFTER 48 HOURS 05/21/18 21:30 Stool Stool Culture - Preliminary No Pathogens Isolated Lab Pending Results 05/21/18 14:59: Influenza Type A Ag Negative, Influenza Type B Ag Negative 05/21/18 14:59: Group A Strep Rapid Negative 05/21/18 15:05: Procalcitonin 0.89 H 05/21/18 15:05: WBC 0.2 L, RBC 3.13 L, Hgb 10.1 L, Hct 29.6 L, MCV 94.6, MCH 32.3 H, MCHC 34.1, RDW 17.2 H, Plt Count 82 L, MPV 11.7 H, Immature Gran % (Auto) 5.00 H, Immature Gran # (Auto) 0.01, Neutrophils % 30.0 L, Neutrophils % (Manual) 20 L, Lymphocytes % 15.0 L, Lymphocytes % (Manual) 52 H, Monocytes % 50.0 H, Monocytes % (Manual) 20 H, Eosinophils % 0.0, Basophils % 0.0, Nucleated RBC % 0.0, Immature Granulocytes 4 H, Neutrophils # 0.1 L, Neutrophils # (Manual) 0.0 L, Lymphocytes # 0.03 L, Lymphocytes # (Manual) 0.0 L, Monocytes # 0.1, Monocytes # (Manual) 0.0, Eosinophils # 0.0, Absolute Basophils 0.0, Atypic/Reactive Lymphs 4 H, Platelet Estimate Decreased L, Macrocytosis 1+, Tear Drop Cells Trace, Ovalocytes Trace 05/21/18 15:05: Sodium 127 L, Plasma Sodium 128 L, Potassium 3.3 L, Chloride 93 L, Carbon Dioxide 22.7 L, Anion Gap 14.6 H, BUN 17, Creatinine 1.12, Est GFR (Non-Af Amer) 71, BUN/Creatinine Ratio 15.2, Random Glucose 145 H, Calcium 8.2, Calcium Adj for Albumin 8.6, Total Bilirubin 0.6, AST 14, ALT 43, Alkaline Phosphatase 95, C-Reactive Prot, Quant 7.0 H, Total Protein 6.5, Albumin 3.1 L 05/21/18 15:05: Lactic Acid, Venous 1.9 05/21/18 16:13: Urine Color [place], Urine Appearance Slightly cloudy, Urine pH 6.0, Ur Specific [place] >=1.030, Urine Protein 100 H, Urine Glucose (UA) Negative, Urine Ketones Negative, Urine Blood Negative, Urine Nitrate Negative, Urine Bilirubin Negative, Prot Sulfosalicylic Acd Negative, Urine Urobilinogen Normal, Ur Leukocyte Esterase Negative, Urine RBC None seen, Urine WBC None seen, Ur Epithelial Cells 5-10 H, Urine Bacteria 1+ H, Fine Granular Casts 0-5 H, Urine Mucus Trace, Urine Culture Comments No culture indicated 05/21/18 21:39: Stl C.difficile Tox A&B Negative 05/23/18 05:55: WBC 0.9 L D, RBC 2.47 L, Hgb 8.0 L, Hct 24.2 L, MCV 93.9, MCH 32.4 H, MCHC 34.5, RDW 16.6 H, Plt Count 53 L, MPV 12.0 H, Neutrophils % (Manual) 45, Band Neuts % (Manual) 12 H, Lymphocytes % (Manual) 30, Monocytes % (Manual) 6, Basophils % (Manual) 1, Neutrophils # (Manual) 0.4 L, Lymphocytes # (Manual) 0.3 L, Monocytes # (Manual) 0.1, Basophils # (Manual) 0.0, Atypic/Reactive Lymphs 6 H, Platelet Estimate Normal 05/23/18 05:55: Sodium 132, Plasma Sodium 132, Potassium 3.2 L, Chloride 100, Carbon Dioxide 25.9, Anion Gap 9.3, BUN 11, Creatinine 0.81, Est GFR (Non-Af Amer) 104 D, BUN/Creatinine Ratio 13.6, Random Glucose 108, Calcium 8.1 05/23/18 16:12: Urine Color Dark yellow, Urine Appearance Clear, Urine pH 6.0, Ur Specific [place] 1.025, Urine Protein Negative, Urine Glucose (UA) Negative, Urine Ketones 5, Urine Blood Negative, Urine Nitrate Negative, Urine Bilirubin Negative, Urine Urobilinogen Normal, Ur Leukocyte Esterase Negative, Urine RBC None seen, Urine WBC None seen, Ur Epithelial Cells Trace, Calcium Oxalate Crystal Few - 1+ H, Urine Bacteria Trace, Urine Mucus Few - 1+ H 05/24/18 05:28: WBC 1.7 L D, RBC 2.43 L, Hgb 8.0 L, Hct 24.2 L, MCV 95.5, MCH 32.5 H, MCHC 34.1, RDW 17.1 H, Plt Count 55 L, MPV 12.3 H, Neutrophils % (Manual) 55, Band Neuts % (Manual) 5 H, Lymphocytes % (Manual) 28, Monocytes % (Manual) 1, Eosinophils % (Manual) 1, Immature Granulocytes 10 H, Neutrophils # (Manual) 0.9 L, Lymphocytes # (Manual) 0.5 L, Monocytes # (Manual) 0.0, Eosinophils # (Manual) 0.0, Platelet Estimate Decreased L, Hypochromasia 1+, Macrocytosis 1+ 05/24/18 05:28: Sodium 136, Plasma Sodium 136, Potassium 3.4, Chloride 102, Carbon Dioxide 26.5, Anion Gap 10.9, BUN 10, Creatinine 0.78, Est GFR (Non-Af Amer) 108, BUN/Creatinine Ratio 12.8, Random Glucose 100, Calcium 8.2 Discharge Location: Home Disposition: Home self-care Condition: Stable Discharge Activity: Activity as tolerated, Partial-Weight bearing Discharge Diet: General/regular food Referrals: Breanna Padron PAC [Primary Care Provider] - Problem Oriented Discharge Instructions to Patient/Family: Fever, Adult Additional Patient Instructions (free text): We will call you with your follow up appointment later today. Prescriptions (Any new or edited meds): Cefdinir [Omnicef] 300 mg PO Q12H 4 Days #8 cap Complete Home Medications List: Complete Home Medication List: Acyclovir [Zovirax] 400 mg PO BID 05/21/18 Sulfamethoxazole/Trimethoprim [Bactrim 400-80 mg Tablet] 1 ea PO DAILY 05/21/18 Vitamin C 05/21/18 Cefdinir [Omnicef] 300 mg PO Q12H 4 Days #8 cap 05/24/18
[2018-05-24 11:44] VITALS: BP 116/57
== END 2018-05-24 12:15 | disposition home or self-care (01) | DRG 809 ==
LOC: ER 14:09 → MS 16:49
PROVIDERS: ADMIT Internal Medicine; ATTEND Internal Medicine
CPT/HCPCS: 36415; 71020; 71046; 80048; 80053; 81001; 83605; 84145; 85007; 85025; 86140; 87040; 87045; 87046; 87081; 87400; 87430; 87449; 87493; 96365; 96375; 99285; J2405